=== PATIENT | male | born 1960 | race Caucasian/White ===

== ENCOUNTER 2018-10-04 20:16 | Emergency (ER) | payer SELFPAY ==
[~2018-10-04] VITALS: Ht 170.2 cm; Wt 86.2 kg
[2018-10-04] MEDS ORDERED: IV NS 0.9% 1,000 ML BAG IV ONE (20:30)
--- NOTE | 2018-10-04 20:43 | NUR ---
CALLED PT'S CELL PHONE TO TRY TO SEE IF HIS SON PICKED UP THE PHONE. [phone]
[2018-10-04 20:58] LABS: BASOPHILS % (AUTO) 0.9 % (0.0-2.0); EOSINOPHILS % (AUTO) 2.1 % (0.0-6.0); HEMATOCRIT 39 % (39-51); HEMOGLOBIN 13.4 g/dL (13.5-17.5); LYMPHOCYTES # (AUTO) 1.9 /CMM (0.8-4.8); LYMPHOCYTES % (AUTO) 36.5 % (20.0-44.0); MEAN CORPUSCULAR HGB CONC 34 g/dl (31.0-36.0); MEAN CORPUSCULAR VOLUME 90 fL (80-96); MONOCYTES # (AUTO) 0.4 /CMM (0.1-1.30); MONOCYTES % (AUTO) 8.2 % (2.0-12.0); NEUTROPHILS # (AUTO) 2.7 /CMM (1.8-8.9); NEUTROPHILS % (AUTO) 52.3 % (43.0-81.0); PLATELET COUNT (AUTO) 223 /CMM (150-450); RED BLOOD CELL COUNT(AUTO) 4.36 MIL/uL (4.5-6.0); WHITE BLOOD COUNT (AUTO) 5.2 K/uL (4.3-11.0)
[2018-10-04 21:24] LABS: ALANINE AMINOTRANSFERASE 21 U/L (12-78); ALBUMIN 3.2 g/dL (3.4-5.0); ALKALINE PHOSPHATASE 72 U/L (46-116); ASPARTATE AMINOTRANSFERASE 22 U/L (15-37); BILIRUBIN,TOTAL 0.2 mg/dL (0.2-1.0); CALCIUM, SERUM 8.2 mg/dL (8.5-10.1); CARBON DIOXIDE 24 mmol/L (21-32); CHLORIDE 101 mmol/L (98-107); CREATININE 1.1 mg/dL (0.6-1.3); POTASSIUM 4.2 mmol/L (3.5-5.1); SODIUM SERUM 136 mmol/L (136-145); TOTAL PROTEIN, SERUM 6.8 g/dL (6.4-8.2); UREA NITROGEN, BLOOD 18 mg/dL (7-18)
[2018-10-04 21:25] LABS: GLUCOSE 377 mg/dL (74-106)
[2018-10-04 21:49] VITALS: BP 139/90
== END 2018-10-04 21:51 | disposition home or self-care (01) ==
LOC: ER 20:19
DX: F41.9 Anxiety disorder, unspecified (principal); E11.9 Type 2 diabetes mellitus without complications; R55 Syncope and collapse; I10 Essential (primary) hypertension; F10.10 Alcohol abuse, uncomplicated; Y90.4 Blood alcohol level of 80-99 mg/100 ml
CPT/HCPCS: 36415; 80048; 80076; 80307; 84484; 85025; 93005; 96360; 99284; J7030; G0480